=== PATIENT | male | born 1980 | race African-American/Black ===

== ENCOUNTER 2021-09-14 13:51 | Outpatient (CLI) | payer OTHER ==
[2021-09-14 14:45] VITALS: BP 136/85
--- NOTE | 2021-09-14 14:45 | SLEEP CARE CONSULTATION ---
Information from patient questionnaire entered by Yoshi Holden MA. I have reviewed and concur with the information entered by Yoshi Holden MA. This document represents the service I personally performed and the decisions made by , Dee Crespo ARNP. History of Present Illness Service Date and Time: 09/14/2021 1351 Reason for Visit: New patient Chief Complaint: reports: Insomnia, Snoring, Excessive daytime sleepiness, Fatigue Date of Onset: 2017 Usual bedtime: 900 pm; normally he lays down at midnight Time it takes to fall asleep: 2-3 hours Snores at night: Yes Observed to quit breathing while asleep: No Sleeps alone due to snoring: No Number of times waking at night: 2-3 Reasons for waking at night: reports: Snoring, Pain, Bathroom, Other (pain in shoulder) Toss, Turn, or Twitch while sleeping: Yes Recalls having dreams: Yes Usually gets out of bed at: 0600 Feels refreshed in the morning: No Morning headache: Yes (its on and off through out the day; 2-3 days week on avg) Sleepy or fatigued during the day: Yes Ever fallen asleep while driving: No Takes day naps: Yes (2 days a week) Dreams during day naps: Yes Prior sleep studies: No Additional HPI information: I had the pleasure of seeing ANGELIA MONTES today regarding the possibility of him having a sleep disorder. His current complaints are excessive daytime sleepiness, fatigue, insomnia and snoring. He states he was referred due to not being able to sleep. He states he can take 1 hour or more to fall asleep. 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 He states his loud snoring will startle him awake. He does not wake up feeling rested and will fall asleep if he is sedentary too long. He denies any pauses in breathing, choking or gasping for air in his sleep. 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 Patient is Single and lives in . Have you smoked in the past 12 months: No Alcohol use: No Caffeine use: Yes Caffeine amount and frequency: 1 cup coffee 2 x weekly Family History Family history of sleep disordered breathing: No Family Hx Sleep Apnea: Mother: Snoring Allergies and Home Medications Known drug allergies: No Drug allergies reviewed: Yes Home medication list reviewed: Yes Allergy and home medication list: Melatonin as needed for sleep Review of Systems Cardiovascular: reports: high blood pressure, chest pain Gastrointestinal: denies: heartburn Neurological: reports: headaches Psychiatric: denies: anxiety, depression Ear/Nose/Throat: reports: wisdom teeth removed (still have 2 left). denies: tonsillectomy Endocrine: denies: thyroid disease Musculoskeletal: reports: joint pain, other (shoulder pain) Immunologic: reports: allergies to food or environment Physical Exam Vital signs obtained and entered by: Stu HOLDEN CMA AATONY Blood Pressure: 136/85 Cuff size: wrist Heart Rate: 89 O2 Saturation: 97 Height: 5 ft 10 in Weight: 225 lb (w/o clothes) Body Mass Index: 32.3 BMI Classification: Obese Neck circumference: 16.5 (inches) Mouth and throat: narrow oropharynx Soft palate: long Hard palate: normal Uvula: normal Uvula visualization: 100% Mallampati Class I Tongue: enlarged in size with teeth bahena on lateral edges Tonsils: 1+ Neck: normal w/o lymphadenopathy or thyromegaly Heart: regular rate and rhythm Lungs: clear bilaterally Impression and Plan 1. Suspected Obstructive Sleep Apnea-Hypopnea Syndrome, as suggested by a history of loud and irregular snoring, morning headache, unrefreshed sleep, cognitive impairment, and excessive daytime sleepiness. Narrow oropharynx and obesity are common predisposing factors for obstructive sleep apnea-hypopnea syndrome. I recommend proceeding to polysomnography to confirm the diagnosis and to assess severity. If the patient has significant sleep disordered breathing, a manual CPAP titration study will also be performed to find the optimal treatment pressure. I informed the patient of what the sleep studies involve and after some discussion, obtained agreement to proceed. The pathophysiology of obstructive sleep apnea-hypopnea syndrome was discussed with the patient and health risks of cardiovascular and cerebrovascular disease if not treated. AASM brochure for obstructive sleep apnea-hypopnea syndrome given and reviewed. Risks of drowsy driving discussed in detail and patient advised to avoid long distance driving and to truss puller helper at the first sign of drowsiness. Patient agreed to plan. * Schedule polysomnography +- manual CPAP titration study and return in 1-2 weeks after the study to discuss result and initiate therapy. * Avoid long distance driving or driving when feeling sleepy. * Avoid alcohol, sedative and muscle relaxant around bedtime. * Attempt to lose weight. * Review instructions provided by trained office staff on how to prepare for the sleep study. * Return for follow-up after sleep study completed. Counseling Topics: Weight loss health impact Visit Type: In Office Time Spent with Patient (minutes): 43 Provider Statement: I spent 100% of the Face to Face Visit with the patient with greater than 50% spent counseling the patient and coordination of care.
== END 2021-09-14 13:52 | disposition home or self-care (01) ==
LOC: SC 13:51
PROVIDERS: ATTEND Nurse Practitioner Family
DX: R06.83 Snoring (principal); R51.9 Headache, unspecified; G47.8 Other sleep disorders; G47.10 Hypersomnia, unspecified; R41.89 Other symptoms and signs involving cognitive functions and awareness; E66.9 Obesity, unspecified; Z68.32 Body mass index [BMI] 32.0-32.9, adult
CPT/HCPCS: 99203; 99212

== ENCOUNTER 2021-09-24 08:31 | Outpatient (CLI) | payer OTHER | END 2021-09-24 08:32 | disposition home or self-care (01) | LOC: SC 08:31 | PROVIDERS: ATTEND Nurse Practitioner Family | DX: G47.33 Obstructive sleep apnea (adult) (pediatric) (principal); R09.02 Hypoxemia | CPT/HCPCS: 95806 ==

== ENCOUNTER 2021-10-17 08:33 | Outpatient (CLI) | payer OTHER ==
[2021-10-17 09:02] VITALS: BP 122/78
--- NOTE | 2021-10-17 09:02 | SLEEP CARE CONSULTATION ---
Information from patient questionnaire entered by Yoshi Guillaume MA. I have reviewed and concur with the information entered by Yoshi Guillaume MA. This document represents the service I personally performed and the decisions made by , Dee Cresop ARNP. History of Present Illness Service Date and Time: 10/17/2021 0833 Initial [place] Sleepiness Scale score: 19 (2021) Current [place] Sleepiness Scale score: 19 (2021) Additional HPI information: ANGELIA MONTES returns for follow up and results of the recently performed home sleep study. I explained the pathophysiology behind obstructive sleep apnea. We then spent quite a bit of time discussing different treatment options. For mild obstructive sleep apnea, surgery and oral appliance are alternatives to nasal CPAP therapy but in moderate or severe cases, nasal CPAP is the most effective and reliable treatment. Because apnea is primarily in supine position, then positional management therapy could be effective. Methods discussed such as positioning with pillows to prevent supine sleep. I reviewed the impact of weight changes on sleep apnea and strongly recommended losing weight. After some discussion, the patient opted to go with the nasal CPAP therapy. Nasal autoCPAP set at 4-15 cmH20 will be ordered with rationale explained. A manual titration study will be ordered if unable to find optimal pressure with office adjustments. I explained how CPAP machine works and what to expect when using the machine. Using CPAP every night in order to get used to it was emphasized. Patient advised to put CPAP mask on before getting into bed so as not to fall asleep without CPAP. To assist acclimation to CPAP use, it could also be used for a short time during day while reading or watching TV. The patient was instructed to call the CPAP supplier to discuss any mechanical problem that may occur. If the mask given is uncomfortable or is difficult to keep on through the night even with adjustment, contact the CPAP supplier as many will replace with another mask style if notified before 30 days. If snoring or perceives is not getting enough air or too much air from the machine, notify this office. AASM patient education PAP tips reviewed and given to patient. Patient does not drink alcohol. Patient was cautioned about risks of drowsy driving until sleepiness symptoms resolve. Sleep Study - Results Type of Sleep Study: Home sleep study (F/U HOME STUDY) Prior sleep studies: No Polysomnography/Home Sleep Study results: Physician Impression: The quality of the study is fair due to partial loss of airflow signal. The length of the study is inadequate (< 240 minutes of useful data). Please also see the tabulated and graphic data. 1. Obstructive Sleep Apnea-Hypopnea (ICD-10 G47.33), moderate, with an AHI of 16.3/hr and rob SaO2 of 79%. During the study, the patient had 17 apneas (17 obstructive, 0 central, 0 mixed) and 8 hypopneas. The longest episode lasted 58.5 seconds. The patient did not sleep supine during this study. 2. Hypoxemia (ICD-10 R09.02), moderate, with the lowest oxygen saturation of 79 % and 13.7 minutes with SaO2 under 90%. Baseline oxygen saturation was normal (Average oxygen saturation was 94%). Allergies and Home Medications Known drug allergies: No (SHELL FISH) Drug allergies reviewed: Yes Home medication list reviewed: Yes (Ibuprofen, prn) Review of Systems Review of systems same as previous: Yes (shoulder arthritis) Physical Exam Vital signs obtained and entered by: Stu GUILLAUME CMA AATONY Blood Pressure: 122/78 (RIGH, PULSE 86, RSP 16,) Cuff size: wrist Heart Rate: 76 O2 Saturation: 97 (WITH PAPER MASK) Height: 5 ft 10 in Weight: 227 lb (PT CLOTHES) Body Mass Index: 32.5 BMI Classification: Obese Impression and Plan 1. Obstructive Sleep Apnea-Hypopnea Syndrome, moderate, with lowest oxygen saturation of 79%. Obviously this is the cause of the patients symptoms of unrefreshed sleep, and excessive daytime sleepiness. As mentioned above, the patient will be started on nasal autoCPAP therapy with pressure set at 4-15 cmH2 O. A manual titration study will be completed if unable to find optimal treatment pressure with office adjustments. Compliance guidelines also reviewed. A copy of compliance guidelines will be given for reference at check out. Patient was advised to try to lose weight to reduce apneas and improve his overall health. He voiced understanding. 2. Hypoxemia, moderate, with the lowest oxygen saturation of 79 % and 13.7 minutes with SaO2 under 90%. His baseline oxygen saturation was normal with an average oxygen saturation of 94%. * Nasal auto CPAP therapy, pressure at 4-15 cm H2O. * Attempt to lose weight. * Avoid alcohol consumption near bedtime. * Avoid supine sleep until using CPAP. * The patient is again cautioned about driving until sleepiness completely resolves. * Return one month after CPAP obtained. I will assess response to therapy and compliance at that time. Counseling Topics: Weight loss health impact Visit Type: In Office Time Spent with Patient (minutes): 20 Provider Statement: I spent 100% of the Face to Face Visit with the patient with greater than 50% spent counseling the patient and coordination of care.
== END 2021-10-17 08:34 | disposition home or self-care (01) ==
LOC: SC 08:33
PROVIDERS: ATTEND Nurse Practitioner Family
DX: G47.33 Obstructive sleep apnea (adult) (pediatric) (principal); R09.02 Hypoxemia; E66.9 Obesity, unspecified; Z68.32 Body mass index [BMI] 32.0-32.9, adult
CPT/HCPCS: 99212; 99213

== ENCOUNTER 2022-01-01 08:43 | Outpatient (CLI) | payer OTHER ==
[2022-01-01 09:25] VITALS: BP 130/79
--- NOTE | 2022-01-01 09:25 | SLEEP CARE CONSULTATION ---
Information from patient questionnaire entered by Yoshi Guillaume MA. I have reviewed and concur with the information entered by Yoshi Guillaume MA. This document represents the service I personally performed and the decisions made by , Dee Crespo ARNP. History of Present Illness Service Date and Time: 01/01/2022 0843 Previous diagnosis: Moderate, Obstructive Sleep Apnea-Hypopnea Syndrome AHI: 16.3 (in 2021) Reason for follow up: first compliance (SET UP 11/09/2021, RESMED,) Equipment type: CPAP Equipment obtained from: Other ([facility]; got initial supplies) Mask style: Full face Mask brand: Resmed (AirFit [id number]) Backup mask available: No (will keep old mask when replaced) Last cushion change: 1 month Prior sleep studies: No Type of Sleep Study: Home sleep study (F/U HOME STUDY) HPI additional information: ANGELIA MONTES was diagnosed to have moderate, AHI 16.3, obstructive sleep apnea-hypopnea syndrome and returned today for CPAP therapy first compliance follow-up. Sleep Study - Results Type of Sleep Study: Home sleep study (F/U HOME STUDY) Prior sleep studies: No CPAP Compliance Data - Data Reviewed with Patient Average duration of nightly device use: 4 HOURS 35 MINUTES Compliance rate %: 53 (30 days) Current pressure setting (cmH2O): 10-16 (95% 13.1, max 14.3) Average residual AHI: 2.0 Central apnea: .5 Obstructive apnea: .9 Average large leak: 5. Subjective Missed days of use due to: reports: other (O2 WAS WAY TO LOW, will take off during the night) Patient concerns: reports: mask discomfort (getting used to it), other (HEADACHES - improved with pressure increase). denies: aerophagia, air blowing in eyes, mask leak noise, condensation in mask/hose, nasal congestion, dry mouth, nose, throat, epistaxis Observed to snore while using device: No Current pressure setting perceived as: too low On therapy, patient: reports: sleeping better, more rested overall, other (getting there, just needs to get used to it more). denies: drowsiness while driving Initial [place] Sleepiness Scale score: 19 (2021) Current [place] Sleepiness Scale score: 18 (12/2021) Allergies and Home Medications Home medication list reviewed: Yes (Epipen for allergies) Review of Systems Review of systems same as previous: No (allergies - unsure of what they are but he was given an EpiPen) Physical Exam Vital signs obtained and entered by: NICK ARENAS Blood Pressure: 130/79 (RIGHT, PULSE 69, RESP 18,) Heart Rate: 71 O2 Saturation: 98 (PAPER MASK) Height: 5 ft 10 in Weight: 224 lb (UNIFORM AND BOOTS) Weight change since last visit: 3 lb loss Body Mass Index: 32.1 BMI Classification: Obese Impression and Plan 1. Obstructive Sleep Apnea-Hypopnea Syndrome, moderate, with fair treatment compliance and good apnea control. On CPAP therapy, the patient has better sleep quality and is more rested overall. He states the pressure change to 10-16 cmH2O really made the air hunger he was experiencing better and he was not taking the mask off during the night as much. He states it still feels a little too low and would like it increased. His 95% pressure is at 13.1 cmH2O with a residual AHI of 2.0. The patients pressure will be changed to autoCPAP 13-17 cmH20 for patient comfort (air hunger). Patient advised to contact me if pressure change is uncomfortable so that it can be adjusted. Goals for apnea control discussed. Patient's apnea severity and rationale for treatment to reduce apnea, improve sleep quality and reduce cardiovascular and cerebrovascular events was reviewed. 2. Obesity, unspecified. Patient has lost weight. Currently patients BMI is 32.1. Obesity increases the risk of apnea, CPAP pressure requirements and overall health risks especially cardiovascular and diabetes. Thus patient is advised to continue to try to lose weight. He is trying to work out more on a weekly basis. * Change auto CPAP pressure to 13-17 cmH2O * Notify me if snoring with mask or feeling that the pressure is too much or too little * Attempt to lose weight * Call this office if any problems using CPAP * Return for follow up in 1-2 months, or sooner if concerns arise Counseling Topics: Spare mask, Weight loss health impact Visit Type: In Office Time Spent with Patient (minutes): 21 Provider Statement: I spent 100% of the Face to Face Visit with the patient with greater than 50% spent counseling the patient and coordination of care.
== END 2022-01-01 08:44 | disposition home or self-care (01) ==
LOC: SC 08:43
PROVIDERS: ATTEND Nurse Practitioner Family
DX: G47.33 Obstructive sleep apnea (adult) (pediatric) (principal); E66.9 Obesity, unspecified; Z68.32 Body mass index [BMI] 32.0-32.9, adult
CPT/HCPCS: 99212; 99213

== ENCOUNTER 2022-02-15 08:41 | Outpatient (CLI) | payer OTHER ==
[2022-02-15 09:31] VITALS: BP 120/75
--- NOTE | 2022-02-15 09:31 | SLEEP CARE CONSULTATION ---
Information from patient questionnaire entered by Yoshi Guillaume MA. I have reviewed and concur with the information entered by Yoshi Guillaume MA. This document represents the service I personally performed and the decisions made by , Dee Crespo ARNP. History of Present Illness Service Date and Time: 02/15/2022 0841 Previous diagnosis: Moderate, Obstructive Sleep Apnea-Hypopnea Syndrome AHI: 16.3 (in 2021) Reason for follow up: other (6 week f/u, resmed, [place] 11/07/2021, ) Equipment type: CPAP Equipment obtained from: Other ([facility] ; getting supplies as needed) Mask style: Full face Mask brand: Resmed (Airfit F20) Backup mask available: No (will keep mask when replaced) Last cushion change: 2 month Prior sleep studies: No Type of Sleep Study: Home sleep study (F/U HOME STUDY) HPI additional information: ANGELIA MONTES was diagnosed to have moderate, AHI 16.3, obstructive sleep apnea-hypopnea syndrome and returned today for CPAP therapy six week follow-up. Sleep Study - Results Type of Sleep Study: Home sleep study (F/U HOME STUDY) Prior sleep studies: No CPAP Compliance Data - Data Reviewed with Patient Average duration of nightly device use: 6 HOURS 17 MINUTES Compliance rate %: 78 (12/31/21-02/13/22; 45 days, 40/45 days used) Current pressure setting (cmH2O): 13-17 Average residual AHI: 1.3 Central apnea: .7 Obstructive apnea: .3 Hypopnea: .3 Average large leak: 2.5 Subjective Missed days of use due to: reports: other (allergies) Patient concerns: reports: nasal congestion (due to allergies). denies: aerophagia, mask discomfort, air blowing in eyes, mask leak noise, condensation in mask/hose, dry mouth, nose, throat, epistaxis, other Observed to snore while using device: No Current pressure setting perceived as: comfortable On therapy, patient: reports: sleeping better, more rested overall. denies: drowsiness while driving Initial [place] Sleepiness Scale score: 19 (2021) Current [place] Sleepiness Scale score: 15 (02/15/2022) Allergies and Home Medications Home medication list reviewed: Yes (no changes) Review of Systems Review of systems same as previous: Yes (no changes) Physical Exam Vital signs obtained and entered by: Stu Guillaume CMA [facility] Blood Pressure: 120/75 (RESP 16, PULSE 82, RIGHT) Heart Rate: 83 O2 Saturation: 98 (PAPER MASK) Height: 5 ft 10 in Weight: 226 lb (UNIFORM AND BOOTS) Body Mass Index: 32.4 BMI Classification: Obese Impression and Plan 1. Obstructive Sleep Apnea-Hypopnea Syndrome, moderate, with good treatment compliance and good apnea control. On CPAP therapy, the patient has better sleep quality and is more rested overall. He has been experiencing some insomnia and we discussed methods to help reduce this such as having good sleep hygiene. [facility] pamphlet Understanding Insomnia given and explained to patient. Patient has had a little nasal congestion, but this is due to his allergies. He has been using Flonase prior to bedtime and this is helping to reduce the nasal congestion. Patient denies problems with oral dryness, epistaxis, skin irritation or aerophagia. Patient's apnea severity and rationale for treatment to reduce apnea, improve sleep quality and reduce cardiovascular and cerebrovascular events was reviewed. 2. Obesity, unspecified. Currently patients BMI is 32.4. Obesity increases the risk of apnea, CPAP pressure requirements and overall health risks especially cardiovascular and diabetes. Thus patient is advised to try to lose weight. Weight loss can be done with reducing portion size, reducing refined foods and balancing content with vegetables, fruit and whole grain foods. In addition, patient encouraged to get regular exercise. * Continue auto CPAP pressure at 13-17 cmH2O * Notify me if snoring with mask or feeling that the pressure is too much or too little * Attempt to lose weight * Call this office if any problems using CPAP * Return for follow up in 3 months, or sooner if concerns arise Counseling Topics: Spare mask, Weight loss health impact Visit Type: In Office Time Spent with Patient (minutes): 22 Provider Statement: I spent 100% of the Face to Face Visit with the patient with greater than 50% spent counseling the patient and coordination of care.
== END 2022-02-15 08:42 | disposition home or self-care (01) ==
LOC: SC 08:41
PROVIDERS: ATTEND Nurse Practitioner Family
DX: G47.33 Obstructive sleep apnea (adult) (pediatric) (principal); E66.9 Obesity, unspecified; Z68.32 Body mass index [BMI] 32.0-32.9, adult
CPT/HCPCS: 99212; 99213